=== PATIENT | female | born 1980 | race Caucasian/White ===

== ENCOUNTER 2021-05-14 15:57 | Outpatient (CLI) | payer BC ==
[2021-05-14 16:14] LABS: BASOPHILS % (AUTO) 0.2 %; EOSINOPHILS # (AUTO) 0.1 10^3/uL (0.0-0.7); EOSINOPHILS % (AUTO) 1.2 %; HCT - HEMATOCRIT 38.7 % (37.0-47.0); HGB - HEMOGLOBIN 13.3 g/dL (12.0-16.0); LYMPHOCYTES # (AUTO) 2.1 10^3/uL (1.5-3.5); LYMPHOCYTES % (AUTO) 25.5 %; MEAN CORPUSCULAR HEMOGLOBIN 31.5 pg (27.0-31.0); MEAN CORPUSCULAR HGB CONC 34.4 g/dL (32.0-36.0); MEAN CORPUSCULAR VOLUME 91.7 fL (81.0-99.0); MEAN PLATELET VOLUME 10.2 fL (7.9-10.8); MONOCYTES # (AUTO) 0.7 10^3/uL (0.0-1.0); MONOCYTES % (AUTO) 8.4 %; NEUTROPHILS # (AUTO) 5.3 10^3/uL (1.5-6.6); NEUTROPHILS % (AUTO) 64.5 %; PLT - PLATELET COUNT 197 10^3/uL (130-450); RED BLOOD COUNT 4.22 10^6/uL (4.20-5.40); RED CELL DISTRIBUTION WIDTH 12.4 % (12.0-15.0); WHITE BLOOD COUNT 8.2 x10^3/uL (4.8-10.8)
[2021-05-14 16:36] LABS: ALBUMIN 4.2 g/dL (3.2-5.5); ALBUMIN/GLOBULIN RATIO 1.3 (1.0-2.2); ALKALINE PHOSPHATASE 45 IU/L (42-121); ALT ALANINE AMINOTRANSFERASE 14 IU/L (10-60); AST ASPARTATE AMINOTRANSFERASE 17 IU/L (10-42); BILIRUBIN,TOTAL 0.4 mg/dL (0.2-1.0); BUN - BLOOD UREA NITROGEN 12 mg/dL (6-20); CARBON DIOXIDE - CO2 27 mmol/L (21-32); CHLORIDE 102 mmol/L (101-111); CHOL/HDL RATIO 2.8 (<4.4); CHOLESTEROL 188 mg/dL; CREATININE 0.8 mg/dL (0.4-1.0); GFR - MDRD 79 (>89); GLUCOSE 110 mg/dL (70-100); HDL CHOLESTEROL 66 mg/dL; LDL CHOLESTEROL,CALCULATED 103 mg/dL; LDL/HDL RATIO 1.6 (<4.4); POTASSIUM 3.7 mmol/L (3.5-5.0); SODIUM 139 mmol/L (135-145); TOTAL PROTEIN 7.4 g/dL (6.7-8.2); TRIGLYCERIDES 96 mg/dL; VLDL CHOLESTEROL 19 mg/dL
[2021-05-14 16:48] LABS: THYROID STIMULATING HORMONE 1.68 uIU/mL (0.34-5.60)
== END 2021-05-14 15:58 | disposition home or self-care (01) ==
LOC: LAB 15:57
PROVIDERS: ATTEND Registered Nurse
DX: Z00.00 Encounter for general adult medical examination without abnormal findings (principal)
CPT/HCPCS: 36415; 80053; 80061; 83721; 84443; 85025

== ENCOUNTER 2021-05-22 08:00 | Outpatient (CLI) | payer BC | END 2021-05-22 23:59 | disposition home or self-care (01) | LOC: LAB 08:00 | PROVIDERS: ATTEND Physician Assistant Medical | DX: R30.0 Dysuria (principal) | CPT/HCPCS: 87077; 87086; 87181 ==

== ENCOUNTER 2021-06-17 13:16 | Outpatient (CLI) | payer BC ==
--- NOTE | 2021-06-18 09:11 | Mammography Report ---
BILATERAL DIGITAL SCREENING MAMMOGRAM 3D/2D: 06/17/2021 CLINICAL: Baseline exam. Routine screening. No prior exams were available for comparison. The tissue of both breasts is heterogeneously dense. T his may lower the sensitivity of mammography. No significant masses, calcifications, or other findings are seen in either breast. IMPRESSION: NEGATIVE There is no mammographic evidence of malignancy. A 1 year screening mammogram is recommended. This exam was interpreted at Station ID: [id number]. NOTE: For mammograms, a report in lay terms will be sent to the patient. Approximately 15% of breast malignancies will not be visualized mammographically. In the management of a palpable breast mass, a negative mammogram must not discourage biopsy of a clinically suspicious lesion. Electronically Signed By: Osmar Torre M.D. [facility] [place]:06/17/2021 16:55:45 ACR BI-RADS Category 1: Negative 3341F PARENCHYMAL PATTERN: (D) - The breast(s) demonstrate(s) heterogeneously dense fibroglandular radhika thakur. BI-RADS CATEGORY: (1) - 1 RECOMMENDATION: (ANNUAL) - Recommend routine annual screening mammography. [id number] 1 year screening LATERALITY: (B)
== END 2021-06-17 13:17 | disposition home or self-care (01) ==
LOC: DI 13:16
DX: Z12.31 Encounter for screening mammogram for malignant neoplasm of breast (principal)

== ENCOUNTER 2021-07-23 16:15 | Outpatient (CLI) | payer BC ==
--- NOTE | 2021-07-26 11:52 | Ultrasound Report ---
PROCEDURE: Pelvic w/Transvaginal INDICATIONS: EXCESSIVE AND FREQUENT MENSTRUATION TECHNIQUE: Real-time scanning was performed of the pelvic organs, with image documentation. Additional endovagi nal scanning was necessary due to incomplete visualization of the adnexal and endometrial structures by transabdominal scanning. COMPARISON: None. FINDINGS: No pathologic free abdominal or pelvic fluid. Uterus: Uterus is normal in size at 8.3 x 4.0 x 5.1 cm. The endometrium measures 4.0 mm in combined thickness. 1.5-0 0.9 to 0.9 cm mid posterior intramural uterine fibroid noted. 2.0 x 2.1 x 2.3 cm mi d fundal submucosal uterine fibroid noted. Ovaries: Right ovary measures 4.5 x 3.9 x 4.3 cm with total of 39.5 cc. There is a 4.1 x 3.3 x 3.9 c m simple appearing right ovarian cyst. Left ovary measures 2.6 x 2.4 x 2.2 cm with total volume of 7. 0 cc. Left ovary is sonographically normal. IMPRESSION: 1. Uterine fibroids. 2. Right ovarian cyst. 3. Left ovary sonographically normal. Reviewed by: Chelle Hurt MD, PhD on 07/26/2021 11:51 AM PST Approved by: Chelle Hurt MD, PhD on 07/26/2021 11:51 AM PST Station ID: [id number]
== END 2021-07-23 16:16 | disposition home or self-care (01) ==
LOC: DI 16:15
PROVIDERS: ATTEND Registered Nurse
DX: D25.1 Intramural leiomyoma of uterus (principal); D25.0 Submucous leiomyoma of uterus; N83.201 Unspecified ovarian cyst, right side

== ENCOUNTER 2021-10-19 14:28 | Outpatient (CLI) | payer BC ==
[2021-10-19 15:10] LABS: BASOPHILS % (AUTO) 0.3 %; EOSINOPHILS % (AUTO) 0.6 %; HCT - HEMATOCRIT 42.1 % (37.0-47.0); HGB - HEMOGLOBIN 14.5 g/dL (12.0-16.0); LYMPHOCYTES # (AUTO) 1.9 10^3/uL (1.5-3.5); LYMPHOCYTES % (AUTO) 30.6 %; MEAN CORPUSCULAR HEMOGLOBIN 31.5 pg (27.0-31.0); MEAN CORPUSCULAR HGB CONC 34.4 g/dL (32.0-36.0); MEAN CORPUSCULAR VOLUME 91.5 fL (81.0-99.0); MEAN PLATELET VOLUME 10.4 fL (7.9-10.8); MONOCYTES # (AUTO) 0.5 10^3/uL (0.0-1.0); MONOCYTES % (AUTO) 7.4 %; NEUTROPHILS # (AUTO) 3.8 10^3/uL (1.5-6.6); NEUTROPHILS % (AUTO) 60.9 %; PLT - PLATELET COUNT 222 10^3/uL (130-450); WHITE BLOOD COUNT 6.3 x10^3/uL (4.8-10.8)
== END 2021-10-19 14:29 | disposition home or self-care (01) ==
LOC: LAB 14:28
PROVIDERS: ATTEND Obstetrics & Gynecology
DX: Z01.812 Encounter for preprocedural laboratory examination (principal); D25.9 Leiomyoma of uterus, unspecified
CPT/HCPCS: 36415; 85025; 86850; 86900; 86901

== ENCOUNTER 2021-10-21 06:24 | Day surgery (SDC) | payer BC ==
[~2021-10-21 06:24] MED LIST: ACETAMINOPHEN 500 MG TABLET PO ONE; CELECOXIB 100 MG CAPSULE PO ONE; GABAPENTIN 400 MG CAPSULE ONE
[2021-10-21 06:39] LABS: HCG UR QUAL NEGATIVE
[2021-10-21] MEDS ORDERED: LACTATED RINGERS 1,000 ML IV ONE ×2 (06:57→08:28)
[2021-10-21] MEDS ORDERED: BUPIVACAINE 0.5% PF 10 ML VIAL ONE (07:05)
[2021-10-21] MEDS ORDERED: LIDOCAINE 2%-EPI 1:100000 20 ML MDV ONE (07:05)
--- NOTE | 2021-10-21 07:10 | ANESTHESIA ---
Pre-Anesthesia VS, & Labs - Diagnosis uterine fibroid - Procedure hysteroscopy, D&C, myosure, myomectomy Vital Signs: Temp Pulse Resp BP Pulse Ox 36.7 C 88 16 121/92 H 97 10/21/21 06:40 10/21/21 06:40 10/21/21 06:40 10/21/21 06:40 10/21/21 06:40 Height: 5 ft 3 in Weight (kg): 70.2 kg Body Mass Index: 27.3 BMI Classification: Overweight - NPO >8 hours - Is Patient ?: No Home Medications and Allergies Home Medications: Ambulatory Orders Multivitamin 1 each PO DAILY 10/12/21 Multivitamin 1 each PO DAILY 10/12/21 Allergies/Adverse Reactions: Allergies Allergy/AdvReac Type Severity Reaction Status Date / Time No Known Drug Allergies Allergy Verified 10/12/21 12:33 Anes History & Medical History - Anesthetic History Anesthesia Complications: reports: No previous complications - Medical History Cardiovascular: reports: None Pulmonary: reports: None Gastrointestinal: reports: None Urinary: reports: None Musculoskeletal: reports: None Endocrine/Autoimmune: reports: None Skin: reports: None Smoking Status: Never smoker Psychosocial: reports: Alcohol (4 drinks a week) History of Cancer?: No - Surgical History Orthopedic: reports: ACL reconstruction Exam General: Alert, Oriented x3 Dental: WNL Mouth Opening: Greater than 4 Fingerbreadths Neck Mobility: Normal Mallampati classification: I Thyromental Distance: greater than 6 cm Respiratory: Lungs clear Cardiovascular: Regular rate Plan Anesthesia Type: General Consent for Procedure(s) Verified and Reviewed: Yes Code Status: Attempt Resuscitation ASA classification: 1-Healthy patient Is this case an emergency?: No
--- NOTE | 2021-10-21 07:15 | HISTORY & PHYSICAL EXAMINATION ---
History and Physical - History and Physical Patient is a 41-year-old G0 presenting today for hysteroscopic D&C with MyoSure myomectomy. She has ongoing abnormal uterine bleeding that is heavy and frequent. She had a transvaginal ultrasound in July that showed a 1/2 cm intramural fibroid and a 2 cm submucosal uterine fibroid. We discussed that time that this may be the cause of her heavy bleeding. She wanted to avoid hormones and would like a definitive treatment if possible. She denies significant change in her history since we last talked. All other symptoms reviewed and were negative except per HPI. PMH Abnormal uterine bleeding PSH ACL, meniscus repair OB History G0 SH Denies tobacco, drug use. Mild amount of alcohol. Family History Mother: Stroke, CVA, [place] Father: Hypertension, diabetes Maternal grandmother: Stroke, CHF Maternal grandfather: Lung cancer Paternal grandfather: Colon cancer Paternal grandmother: Heart disease Allergies No known drug allergies Medications No current medications Physical exam: Temp Pulse Resp BP Pulse Ox 98.1 F 88 16 121/92 H 97 10/21/21 06:40 10/21/21 06:40 10/21/21 06:40 10/21/21 06:40 10/21/21 06:40 General: Alert, oriented, no acute distress Head: Normal cephalic atraumatic Eyes: PERRLA, extraocular motions intact. Respiratory: Normal rate of respiration. No accessory muscle use, normal respiratory effort. Cardiovascular: Regular rate and rhythm Abdomen: Soft, nontender, nondistended Extremities: Normal range of motion Neuro: Oriented x3. Normal movements Psych: Appropriate mood and affect. Normal judgment and insight Laboratory Last Values Urine HCG, Qual NEGATIVE 10/21/21 06:34 Plan 41-year-old G0 with abnormal uterine bleeding, likely from leiomyoma 1. Abnormal uterine bleeding -Likely due to 2 cm submucosal fibroid. Will perform it hysteroscopy with MyoSure myomectomy and D&C. Discussed the risk, benefits, alternatives of this procedure. Discussed the risk of infection being very low as well as bleeding. Risk of anesthesia. The significant risk of this is perforation where would not be able to perform the surgery today. It is overall low risk to perforate, but the uterus would not hold fluid. Patient understands and like to proceed with surgery.
[2021-10-21] MEDS ORDERED: PROPOFOL 200 MG/20 ML VIAL IVP ONE (07:34)
[2021-10-21] MEDS ORDERED: LIDOCAINE-MPF 2% 5 ML VIAL ONE (07:34)
[2021-10-21] MEDS ORDERED: fentaNYL 100 MCG/2 ML VIAL ONE (07:34)
[2021-10-21] MEDS ORDERED: MIDAZOLAM 2 MG/2 ML VIAL ONE (07:34)
[2021-10-21] MEDS ORDERED: BUPIVACAINE 0.5% PF 10 ML VIAL IM ONE (07:53)
[2021-10-21] MEDS ORDERED: LIDOCAINE 2%-EPI 1:100000 20 ML MDV SUBQ ONE (07:53)
[2021-10-21] MEDS ORDERED: ATROPINE ABBOJECT 1 MG/10 ML SYRINGE IVP PRN (07:56)
[2021-10-21] MEDS ORDERED: fentaNYL 100 MCG/2 ML VIAL IVP PRN (07:56)
[2021-10-21] MEDS ORDERED: ePHEDrine 50 MG/ML VIAL IVP PRN (07:56)
[2021-10-21] MEDS ORDERED: ONDANSETRON 4 MG/2 ML VIAL IVP PRN (07:56)
[2021-10-21] MEDS ORDERED: HYDROmorphone 0.5 MG/0.5 ML SYRINGE IVP PRN (07:56)
[2021-10-21] MEDS ORDERED: MORPHINE 2 MG/ML CARPUJECT IVP PRN (07:56)
[2021-10-21] MEDS ORDERED: NALOXONE 0.4 MG/ML VIAL IVP PRN (07:56)
[2021-10-21] MEDS ORDERED: METOCLOPRAMIDE 10 MG/2 ML VIAL IVP PRN (07:56)
[2021-10-21] MEDS ORDERED: LACTATED RINGERS 1,000 ML IV SCH (08:00)
--- NOTE | 2021-10-21 08:29 | OPERATIVE REPORT ---
Operative Report - General Planned Procedure: Hysteroscopy with MyoSure myomectomy Pre-Op Diagnosis: Abnormal uterine bleedingleiomyoma Procedure Performed: Hysteroscopy with MyoSure myomectomy Post Op Diagnosis: Same - Procedure Note Primary Surgeon: Yemi Berry MD Anesthesia Provider: Maricruz Frey CRNA Anesthesia Technique: General LMA Pathology: Endometrial curettings IV Fluids (mL): 800 Estimated Blood Loss (mL): 5 Complications: None - Other Other Information/Narrative: Patient was taken to the procedure room and placed in dorsal lithotomy position. Patient was prepped and draped in the usual sterile fashion. [place] speculum was palced in the vagina and the cervix was visualized and cleansed with betadine. The anterior lip the cervix was grasped with a single-tooth tenaculum. The cervix was noted to be nonstenotic and allowed the easy passage of dilators. Hysteroscope was then used to hydrodilate using normal saline distention media. Hysteroscope was advanced without difficulty using hydrodistention. Cervical canal was noted to be normal. Upon entry into the internal cervical os there was noted to be proliferative endometrium within the uterus, which appeared small. The posterior fundal fibroid was not well visualized, but did appear a thickened wall. Using the MyoSure device, a small amount of tissue was taken, but as to not disrupt the integrity uterus, we approximated the normal curvature of the remainder of the uterus. Bilateral cornua were noted, but ostia were not able to be visualized despite increasing the pressure of the aquillex system. Hysteroscope was then removed. Tenaculum was then removed from the cervix noted to be hemostatic. All instruments removed from the vagina. Fluid deficit of 215 mL.
--- NOTE | 2021-10-21 09:01 | ANESTHESIA POST OP EVALUATION ---
Anesthesia Post Eval - Post Anesthesia Eval Vitals: Last Vital Signs Temp 36.8 C 10/21/21 08:54 Pulse 84 10/21/21 08:54 Resp 13 10/21/21 08:54 BP 125/86 H 10/21/21 08:54 Pulse Ox 98 10/21/21 08:54 CV Function Including HR & BP: Stable Pain Control: Satisfactory Nausea & Vomiting: Negative Mental Status: Baseline Respiratory Status: Airway Patent Hydration Status: Satisfactory Anesthesia Complications: None
[2021-10-21 10:00] VITALS: BP 122/91
== END 2021-10-21 06:25 | disposition home or self-care (01) ==
LOC: SDS 06:24
PROVIDERS: ATTEND Obstetrics & Gynecology
PROC: 0UB98ZZ Excision of Uterus, Via Natural or Artificial Opening Endoscopic (ICD-10-PCS; principal; 2021-10-21 07:30)
DX: D25.1 Intramural leiomyoma of uterus (principal); D25.0 Submucous leiomyoma of uterus; N93.9 Abnormal uterine and vaginal bleeding, unspecified
CPT/HCPCS: 58561; 81025; A9270; J7120

== ENCOUNTER 2022-12-05 08:00 | Outpatient (CLI) | payer BC | END 2022-12-05 23:59 | disposition home or self-care (01) | LOC: LAB 08:00 | PROVIDERS: ATTEND Registered Nurse | DX: R30.0 Dysuria (principal) | CPT/HCPCS: 87077; 87086 ==